=== PATIENT | female | born 2000 | race African-American/Black ===

== ENCOUNTER 2023-11-21 13:05 | Outpatient (CLI) | payer OTHER ==
--- NOTE | 2023-11-22 01:53 | XRAY Report ---
PROCEDURE: Lumbar Spine 2-3V INDICATIONS: LOW BACK PAIN, ACUTE TECHNIQUE: 3 view(s) of the lumbar spine were acquired. COMPARISON: None. FINDINGS: Bones: Vertebral body height and alignment is maintained. No suspicious bony lesions. Soft tissues: Overlying bowel gas pattern is normal. No suspicious soft tissue calcifications. IMPRESSION: Unremarkable lumbar spine radiographs Reviewed by: Bon Chin MD on 11/22/2023 12:51 AM [facility] Approved by: Bon Chin MD on 11/22/2023 12:51 AM [facility]FRANCIS[facility] Station ID: [id number]
== END 2023-11-21 16:20 | disposition home or self-care (01) ==
LOC: DI.N 13:05
PROVIDERS: ATTEND Family Medicine
DX: M54.50 Low back pain, unspecified (principal); R82.81 Pyuria; R10.9 Unspecified abdominal pain
CPT/HCPCS: 87086

== ENCOUNTER 2024-01-29 09:02 | Emergency (ER) | payer OTHER ==
[2024-01-29 09:34] LABS: BASOPHILS % (AUTO) 0.6 %; EOSINOPHILS # (AUTO) 0.1 10^3/uL (0.0-0.7); EOSINOPHILS % (AUTO) 2.5 %; HCT - HEMATOCRIT 39.9 % (37.0-47.0); LYMPHOCYTES # (AUTO) 2.8 10^3/uL (1.5-3.5); LYMPHOCYTES % (AUTO) 56.6 %; MEAN CORPUSCULAR HEMOGLOBIN 26.4 pg (27.0-31.0); MEAN CORPUSCULAR HGB CONC 32.6 g/dL (32.0-36.0); MEAN CORPUSCULAR VOLUME 81.1 fL (81.0-99.0); MEAN PLATELET VOLUME 9.3 fL (7.9-10.8); MONOCYTES # (AUTO) 0.4 10^3/uL (0.0-1.0); NEUTROPHILS # (AUTO) 1.5 10^3/uL (1.5-6.6); NEUTROPHILS % (AUTO) 31.1 %; PLT - PLATELET COUNT 423 10^3/uL (130-450); RED BLOOD COUNT 4.92 10^6/uL (4.20-5.40); RED CELL DISTRIBUTION WIDTH 14.4 % (12.0-15.0); WHITE BLOOD COUNT 4.9 x10^3/uL (4.8-10.8)
[2024-01-29 10:03] LABS: ALBUMIN 4.3 g/dL (3.2-5.5); ALBUMIN/GLOBULIN RATIO 1.3 (1.0-2.2); BILIRUBIN,TOTAL 0.4 mg/dL (0.2-1.0); CALCIUM 9.6 mg/dL (8.5-10.3); CREATININE 0.8 mg/dL (0.6-1.3); TOTAL PROTEIN 7.5 g/dL (6.4-8.9)
--- NOTE | 2024-01-29 10:26 | ED Physician Documentation ---
History of Present Illness - Stated complaint Stated Complaint: BACK PX DIZZY - Chief complaint Chief Complaint: Abd Pain - History obtained from History obtained from: Patient - Additonal information Additional information: The patient comes to the emergency department chief complaint abdominal pain, headache, and dizziness since yesterday. She states she often gets such symptoms when she is on her period and did just start. She states that the headache is a little unusual. She has been drinking a lot of water and denies any vomiting. No particular nausea. She has an JUNIOR PROGRAMMER who she sees for her irregular periods and dysmenorrhea. She is not known to be . No fevers. No other complaints at this time. PD PAST MEDICAL HISTORY - Past Medical History Past Medical History: No - Past Surgical History Past Surgical History: No - Present Medications Home Medications: Ambulatory Orders Medication Instructions Recorded Confirmed No Known Home Medications 10/15/23 10/15/23 - Allergies Allergies/Adverse Reactions: Allergies Allergy/AdvReac Type Severity Reaction Status Date / Time No Known Drug Allergies Allergy Verified 01/29/24 09:13 - Social History Does the pt smoke?: No Smoking Status: Never smoker Does the pt drink ETOH?: Yes Does the pt have substance abuse?: No - Immunizations Immunizations are current?: Yes PD ED PE NORMAL - Vitals Vital signs reviewed: Yes - General General: Alert and oriented X 3, No acute distress, Well developed/nourished - HEENT HEENT: Atraumatic, EOMI, Moist mucous membranes - Neck Neck: Supple, no meningeal sign - Cardiac Cardiac: RRR, No murmur - Respiratory Respiratory: No respiratory distress, Clear bilaterally - Abdomen Abdomen: Soft, Non distended, Other (Mild diffuse tenderness across lower abdomen, no rebound or guarding.) - Derm Derm: Normal color, Warm and dry, No rash - Extremities Extremities: No deformity, No edema - Neuro Neuro: Alert and oriented X 3 - Psych Psych: Normal mood, Normal affect Results - Vitals Vitals: Vital Signs - 24 hr 01/29/24 01/29/24 09:13 11:16 Temperature 36.4 C L Heart Rate 64 65 Respiratory 16 18 Rate Blood Pressure 120/62 106/71 O2 Saturation 100 100 Oxygen O2 Source Room air - Labs Labs: Laboratory Tests 01/29/24 01/29/24 09:30 09:30 WBC 4.9 RBC 4.92 Hgb 13.0 Hct 39.9 MCV 81.1 MCH 26.4 L MCHC 32.6 RDW 14.4 Plt Count 423 MPV 9.3 Neut # (Auto) 1.5 Lymph # (Auto) 2.8 Parmer # (Auto) 0.4 Eos # (Auto) 0.1 Baso # (Auto) 0.0 Absolute Nucleated RBC 0.00 Nucleated RBC % 0.0 Sodium 135 Potassium 4.0 Chloride 103 Carbon Dioxide 27 Anion Gap 5.0 L BUN 10 Creatinine 0.8 Estimated GFR (MDRD) 106 Glucose 99 Calcium 9.6 Total Bilirubin 0.4 AST 15 ALT 14 Alkaline Phosphatase 64 Total Protein 7.5 Albumin 4.3 Globulin 3.2 Albumin/Globulin Ratio 1.3 Lipase 12 PD Medical Decision Making - ED course Complexity details: reviewed old records, reviewed results, re-evaluated patient, considered differential, d/w patient ED course: The patient was worked up with labs and given IV fluids, Toradol, and a very small dose of Dilaudid. Workup was unremarkable and the patient was stable for discharge. She did have a friend picking her up because she got sedating meds here. I have advised her to follow-up with her gynecology team for further concerns regarding her dysfunctional uterine bleeding and dysmenorrhea. We discussed the usual indications for return. Departure - Departure Disposition: 01 Home, Self Care Clinical Impression: Dysfunctional uterine bleeding Abdominal pain Qualifiers: Abdominal location: left lower quadrant Qualified Code(s): R10.32 - Left lower quadrant pain Condition: Stable Instructions: ED Abdominal Pain Female Non-Specific Abdominal Pain, ED Bleed Irregular Vaginal Follow-Up: Surinder Kamara MD [Provider Admit Priv/Credential] - Comments: Your laboratory studies look good. There is no evidence of any new issues that are causing your symptoms. Because you drove yourself today we could not give you the stronger pain medication, but you can talk to your doctor about a good plan to treat your symptoms at home when you get these pains. Please schedule the next available appointment either to see your primary doctor or your stave grader. Forms: PCP List, Activity restrictions
[2024-01-29] MEDS: SODIUM CHLORIDE 0.9% 1,000 ML IV STA (10:56)
[2024-01-29] MEDS: KETOROLAC 30 MG/ML VIAL IVP STA (10:56)
[2024-01-29] MEDS: HYDROmorphone 0.5 MG/0.5 ML SYRINGE IVP STA (10:57)
[2024-01-29 12:51] VITALS: BP 124/82; O2SAT 98
== END 2024-01-29 12:34 | disposition home or self-care (01) ==
LOC: ED 09:02
DX: N93.8 Other specified abnormal uterine and vaginal bleeding (principal); R10.32 Left lower quadrant pain
CPT/HCPCS: 36415; 80053; 83690; 85025; 96374; 96375; 99283; J1170